=== PATIENT | male | born 1980 | race Caucasian/White ===

== ENCOUNTER 2025-02-23 16:13 | Emergency (ER) | payer OTHER ==
[~2025-02-23] VITALS: Ht 170.2 cm; Wt 145.4 kg
[2025-02-23 16:16] VITALS: PULSE 77; RESP 16; TEMP 97.8; O2SAT 98
--- NOTE | 2025-02-23 16:57 | RADIOLOGY REPORT ---
EXAM: DI LUMBAR SPINE LIMITED HISTORY: Patient has sustained bending twisting injury at work, pain in lower back w COMPARISON: None TECHNIQUE: AP and lateral views of the lumbar spine and spot lateral of the lumbosacral junction were performed. FINDINGS: No fracture or listhesis of the lumbar spine. There is mild lumbar degenerative disc disease. IMPRESSION: Mild degenerative changes of the lumbar spine without evidence of fracture.
--- NOTE | 2025-02-23 17:21 | Physician Documentation ---
History of Present Illness ~ Chief Complaint: Back Pain Stated Complaint: BACK PAIN Time Seen by MD: 16:24 HPI Patient is a very pleasant 44-year-old male that presents to the emergency department for x-ray of his lumbosacral spine. Patient reports he sustained a work injury at [employer] was told by the worker's comp provider to come to the emergency department to receive an x-ray. Patient will not be staying for additional workup. Patient disease to have x-ray completed. Medication Reconciliation Allergies: Coded Allergies: No Known Allergies (Unverified , 02/23/25) Physical Exam Physical Exam Vital Signs: Temperature: 97.8, Heart Rate: 77, Respiratory Rate: 16, Pulse Oximetry: 98, Weight: 145.450 Oxygen Flow Rate: 0 Progress Results/Orders Results/Orders Orders - ROSLYN GARCIA Lumbar Spine Limited (02/23/25 16:23) Completed Orders - ROSLYN GARCIA Lumbar Spine Limited (02/23/25 16:23) Vital Signs 02/23/25 16:16 Temp 97.8 Pulse 77 Resp 16 Pulse Ox 98 O2 Flow Rate 0 Departure Referrals: NO PRIMARY CARE PROVIDER (PCP) ROSLYN GARCIA Feb 23, 2025 17:21
== END 2025-02-23 18:25 | disposition left against medical advice (07) ==
LOC: ER 16:15
DX: M54.9 Dorsalgia, unspecified (principal)
CPT/HCPCS: 72100; 99282; 99283